=== PATIENT | male | born 1970 | race Caucasian/White ===

== ENCOUNTER 2018-11-25 08:40 | Emergency (ER) | payer MEDICAID ==
[~2018-11-25] VITALS: Ht 177.8 cm; Wt 99.8 kg
[2018-11-25 08:45] VITALS: BP_SYST 133
[2018-11-25 09:15] VITALS: BP_SYST 133
== END 2018-11-25 09:01 | disposition home or self-care (01) ==
LOC: SED 08:40
DX: K08.89 Other specified disorders of teeth and supporting structures (principal)
CPT/HCPCS: 99283